=== PATIENT | male | born 1965 | race Caucasian/White ===

== ENCOUNTER 2022-08-15 23:25 | Emergency (ER) | payer MEDICAID ==
[~2022-08-15] VITALS: Ht 175.3 cm; Wt 88.8 kg
[2022-08-16] MEDS ORDERED: HYDROCODONE/ACETAMINOPHEN 5/325MG TABLET PO ONE (01:45)
[2022-08-16] MEDS ORDERED: KETOROLAC 60MG/2ML VIAL IM ONE (01:45)
[2022-08-16] MEDS ORDERED: IBUP-2028 MT (03:40)
[2022-08-16] MEDS ORDERED: LIDO1ADH23 TP (03:40)
[2022-08-16] MEDS ORDERED: TOPUD PO (03:40)
[2022-08-16] MEDS ORDERED: METH-653 MT (03:40)
[2022-08-16 04:35] VITALS: BP 123/89
== END 2022-08-16 04:35 | disposition home or self-care (01) ==
LOC: ER 23:25
DX: M25.512 Pain in left shoulder (principal); R07.9 Chest pain, unspecified; V29.88XA Motorcycle rider (driver) (passenger) injured in other specified transport accidents, initial encounter; Y93.89 Activity, other specified; Y92.410 Unspecified street and highway as the place of occurrence of the external cause
CPT/HCPCS: 71045; 73030; 93005; 96372; 99284; J1885; A4565